=== PATIENT | female | born 1975 | race Caucasian/White ===

== ENCOUNTER 2018-10-06 04:56 | Inpatient (IN) | payer OTHER ==
[~2018-10-06] VITALS: Ht 167.6 cm; Wt 77.5 kg
[2018-10-06 05:22] VITALS: BP 124/72
[2018-10-06 05:58] LABS: HEMATOCRIT 33.3 % (36.0-47.0); HEMOGLOBIN 11.1 g/dl (12.0-15.5); MEAN CORPUSCULAR HEMOGLOBIN 28.1 pg (27.0-33.0); MEAN CORPUSCULAR HGB CONC 33.3 g/dl (32.0-36.5); MEAN CORPUSCULAR VOLUME 84.3 fl (80.0-96.0); PLATELET COUNT, AUTOMATED 271 10^3/uL (150-450); RED BLOOD COUNT 3.95 10^6/uL (4.00-5.40)
[2018-10-06] MEDS ORDERED: LR 1,000 ML IV SCH (06:12)
[2018-10-06] MEDS ORDERED: PRENTAB9 PO (06:17)
[2018-10-06] MEDS ORDERED: FERR325T3 PO (06:17)
[2018-10-06] MEDS ORDERED: HYDR-3363 PO (06:17)
[2018-10-06] MEDS ORDERED: VALT1TAB PO (06:17)
--- NOTE | 2018-10-06 06:28 | HPEPDOC ---
Obstetrical History & Physical General Date of Admission Oct 06, 2018 at 05:35 History of Present Illness 43 y/o at 39+4 with painful reg ctx's the last 2-3 hours. H/O rapid delivery last baby. No LOF/VB. Pos FM. 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 (h/o X2 in 2009 and 2012, both 7 lbs 6 oz) [employer] History: No pertinent history Past Medical History Medical History see problem list Surgical History: [place] teeth, Other (right parotid gland removal, right wrist ganglion X2, right breast lumpectomy) Family History Significant Family History: No pertinent family hx Social History Marital Status: Family situation: Spouse/partner home Psychosocial History: No pertinent psych hx * Smoker: non-smoker Alcohol: Denies Drugs: denies Abuse Violence Screening Have you been hit/kicked/slapp: No Have you been sexually assault: No Imunizations Tdap status: current Influenza Status: current Allergies Coded Allergies: Latex (Verified Allergy, Mild, mild skin reaction, 10/06/18) Physical Examination Physical Examination GENERAL: Alert and oriented times three. ABDOMEN: Gravid and non-tender to touch. FETUS: Is vertex (VTX) by sterile vaginal examination (SVE), RN check at 0530 was 5/90/-1, vtx EXTREMITIES: No edema. NEFG with no evid of any HSV outbreak Laboratory Data 24H LABS Laboratory Tests 2 10/06/18 05:39: Serology Scanned Report Hepatitis B Testing 10/06/18 05:40: Nucleated Red Blood Cells % (auto) 0.0 CBC/BMP Laboratory Tests 10/06/18 05:40 Red Blood Count 3.95 L, Mean Corpuscular Volume 84.3, Mean Corpuscular Hemoglobin 28.1, Mean Corpuscular Hemoglobin Concent 33.3, Red Cell Distribution Width 14.5 Urine Culture: No Growth Pertinent Laboratoy Data Blood Type: A- RBC Antibody Screen: Negative HIV: Negative Hepatitis B: Negative Hepatitis C: Unknown Rapid Plasma Reagin: Nonreactive Rubella: Immune Varicella: Immune Chlamydia/Gonorrhea: Negative Group B Streptococcus: Negative Quad Screen Test: Declined Cystic Fibrosis: Declined Glucose Tolerance Test: 140 (nl 3 hr gtt) Anatomy Ultrasound Placenta Location: Posterior Normal Anatomy: Yes Placenta Previa: No Assessment Variability: Moderate Accelerations: Positive Decelerations: None Tocometer Contractions: Yes Frequency: every 1-5 min. Duration: greater than 60 seconds Strength: palpated as strong Assessment/Plan Assessment active labor, h/o rapid labors Plan Admit and orient. Silk Presser and consent. Diet: clears Group B Streptococcus (GBS) neg Labs and intravenous (IV) per unit protocol. Counseled on Pitocin and induction of labor (IOL). Lactated Ringers (LR): 125 mL/hr. Anticipate normal spontaneous delivery () C-S as appropriate. Desires minimal intervention and delayed cord clamping, as long as baby condition is OK, this is fine SBAR to Dr Negro in 1 hour Sessions SESSIONS,FLORESITA Presley MD Oct 06, 2018 06:28
[2018-10-06] MEDS ORDERED: OXYTOCIN 30 UNITS IN 0.9% NaCl 500ML IV BAG (J2590) As Ordered ONE (06:31)
[2018-10-06 07:19] VITALS: BP 129/75
[2018-10-06] MEDS ORDERED: OXYTOCIN DRIP 30 UNITS in APPROPRIATE DILUENT 1 EA IV SCH (07:21)
--- NOTE | 2018-10-06 07:28 | DNPDOC ---
[facility] Delivery Note Delivery Note DATE OF DELIVERY: [id number] PREDELIVERY DIAGNOSIS: 39 4/7 weeks' gestation and labor. POST DELIVERY DIAGNOSIS: Delivered. PROCEDURE: Spontaneous vaginal delivery CHEF'S ASSISTANT: Dr. Pastor ANESTHESIA: natural ESTIMATED BLOOD LOSS: 200 mL. FINDINGS: male , weight pending, Score 8/9, nuchal cord times 1, loose DELIVERY SUMMARY: Called to room, fully with , pushing with BOW intact en sheila, great effort. Nuchal cord noticed after vtx delivery, BOW ruptured with clear fluid and cord reduced. No delay of either shoulder. Vigorous to mother's abd. Cord C/C by FOB. Placenta intact. Fundus firm, pit going at 999. No lacs to per/cx. Small post vag well lac became hemostatic, not repaired. Uncomplicated delivery. Cord blood drawn off the cord/placenta by RN. Patrizia PASTOR,FLORESITA Presley MD Oct 06, 2018 07:27
[2018-10-06] MEDS ORDERED: DIBUCAINE 1% OINTMENT 30GM TOP PRN (07:30)
[2018-10-06] MEDS ORDERED: MEASLES,MUMPS,RUBELLA VACCINE INJ (MMR-II) (90707) SC SCH (07:30)
[2018-10-06] MEDS ORDERED: RHOGAM 300 MCG (1500 IU) INJ (J2790) IM SCH (07:30)
[2018-10-06] MEDS ORDERED: METOCLOPRAMIDE INJ 10MG/2ML VIAL (J2765) IV PRN (07:30)
[2018-10-06] MEDS ORDERED: ACETAMINOPHEN TAB 650MG DOSE (2X325MG) PO PRN (07:30)
[2018-10-06 07:50] VITALS: BP 120/59
[2018-10-06 08:04] VITALS: BP 109/62
[2018-10-06] MEDS: PRENATAL VITAMINS CHEWABLE TABLET PO SCH (09:23)
[2018-10-06] MEDS: IBUPROFEN 800 MG TAB PO PRN (09:24)
[2018-10-06] MEDS: DOCUSATE SODIUM 100 MG CAP PO SCH ×2 (09:28→21:49)
[2018-10-06 10:58] VITALS: BP 121/67
[2018-10-06 18:00] VITALS: BP 126/68
[2018-10-07] MEDS: IBUPROFEN 800 MG TAB PO PRN (02:19)
[2018-10-07 06:00] VITALS: BP 111/61
--- NOTE | 2018-10-07 07:40 | IPN ---
DATE: 10/06/2018 43 old, 3, now para 3, admitted with contractions at 39 and 4 weeks of gestation who had a spontaneous vaginal delivery of a male 8 pounds 8 ounces, Apgars of 8 and 9 at one and five minutes respectively. On her first day, we discussed phlebitis, cystitis, mastitis, endometritis, cellulitis; diet, exercise and pain management; perineal, breast and wound care. Blood pressure on discharge 111/61, respirations 18, pulse 67, temperature 98.4. Her admitting hemoglobin was 11.1, hematocrit 33.3 and platelets 271. The rest of the examination unremarkable. Normocephalic, atraumatic. Neck full range of motion. Pupils equal and reactive to light. Distal pulses symmetric. No evidence of deep vein thrombosis (DVT), pulmonary embolism (PE) or superficial phlebitis. Chest is clear bilaterally to bases. No wheezes or rhonchi. Abdomen soft. Uterus two below. Lochia is moderate. Four quadrant bowel sounds are noted. Perineum is intact. No rashes, lesions or pruritus. No arthralgia or myalgia. No complaint of cough, wheeze, shortness of breath or dyspnea on exertion. In summary, we have a term gestation who delivered a live male with breast feedings going well. Plan on discharge today and followup in the office 6 weeks .
[2018-10-07] MEDS: DOCUSATE SODIUM 100 MG CAP PO SCH (09:17)
[2018-10-07] MEDS: PRENATAL VITAMINS CHEWABLE TABLET PO SCH (09:17)
[2018-10-07] MEDS ORDERED: NUPE1OIN2 TOP (10:34)
[2018-10-07] MEDS ORDERED: COLA100C5 PO (10:34)
[2018-10-07] MEDS ORDERED: IBUP-1114 PO (10:34)
[2018-10-07] MEDS ORDERED: MAPA500T2 PO (10:34)
== END 2018-10-07 12:15 | disposition home or self-care (01) | DRG 807 ==
LOC: M LDO 04:56 → M LDI 05:35 → M OBS 10:24
PROVIDERS: ADMIT Obstetrics & Gynecology; ATTEND Obstetrics & Gynecology
PROC: 10E0XZZ Delivery of Products of Conception, External Approach (ICD-10-PCS; principal; 2018-10-06)
DX: O69.81X0 Labor and delivery complicated by cord around neck, without compression, not applicable or unspecified (principal); Z37.0 Single live birth; Z3A.39 39 weeks gestation of pregnancy

== ENCOUNTER → 2019-08-27 | Outpatient (CLI) | payer OTHER ==
[~2019-08-27] MED LIST: COLA100C5 PO; FERR325T3 PO; HYDR-3363 PO; IBUP-1114 PO; MAPA500T2 PO; NUPE1OIN2 TOP; PRENTAB9 PO; VALT1TAB PO
== END ==
LOC: M RAD 09:22
PROVIDERS: ATTEND Nurse Practitioner Primary Care
DX: Z12.31 Encounter for screening mammogram for malignant neoplasm of breast (principal)

== ENCOUNTER 2020-12-28 11:54 | Emergency (ER) | payer OTHER ==
[~2020-12-28] VITALS: Ht 167.6 cm; Wt 66.4 kg
[2020-12-28] MEDS ORDERED: CETI-24 (12:01)
[2020-12-28] MEDS ORDERED: SERT50TA29 (12:01)
[2020-12-28 13:33] LABS: BASO % 0.4 % (0.0-1.0); EOS # 0.1 10^3/uL (0.0-0.5); EOS % 0.9 % (0.0-3.0); HEMATOCRIT 35.5 % (36.0-47.0); HEMOGLOBIN 11.8 g/dl (12.0-15.5); LYMPH # 1.6 10^3/uL (1.5-5.0); LYMPH % 17.9 % (24.0-44.0); MEAN CORPUSCULAR HEMOGLOBIN 28.7 pg (27.0-33.0); MEAN CORPUSCULAR HGB CONC 33.2 g/dl (32.0-36.5); MEAN CORPUSCULAR VOLUME 86.4 fl (80.0-96.0); MONO # 0.7 10^3/uL (0.0-0.8); MONO % 7.6 % (2.0-8.0); NEUTROPHILS # 6.5 10^3/uL (1.5-8.5); NEUTROPHILS % 72.9 % (36.0-66.0); PLATELET COUNT, AUTOMATED 318 10^3/uL (150-450); RED BLOOD COUNT 4.11 10^6/uL (4.00-5.40); WHITE BLOOD COUNT 8.9 10^3/uL (4.0-10.0)
[2020-12-28 14:20] LABS: BLOOD UREA NITROGEN 10 MG/DL (7-18); CALCIUM LEVEL 8.9 MG/DL (8.5-10.1); CARBON DIOXIDE LEVEL 28 MEQ/L (21-32); CHLORIDE LEVEL 106 MEQ/L (98-107); CREATININE FOR GFR 0.53 MG/DL (0.55-1.30); GLOMERULAR FILTRATION RATE > 60.0 (>58); GLUCOSE, FASTING 75 MG/DL (70-100); HCG, SERUM QUANTITATIVE 11917 MIU/ML; POTASSIUM SERUM 3.8 MEQ/L (3.5-5.1); SODIUM LEVEL 139 MEQ/L (136-145)
--- NOTE | 2020-12-28 14:21 | REP ---
INDICATION: vaginal bleeding. COMPARISON: None. TECHNIQUE: Real-time sonographic evaluation of pelvis performed utilizing transabdominal and endovaginal technique. FINDINGS: Intrauterine twin gestation is present, diamniotic dichorionic. Gestational sac A has a mean sac diameter of 20 mm, corresponding to an estimated gestational age of 7 weeks 0 days. A yolk sac is seen internally with no pole. Gestational sac B contains a pole with a crown-rump length of 21 mm corresponding to an estimated gestational age of 8 weeks 5 days. No heart motion is detected. The ovaries are not visualized. IMPRESSION: Intrauterine diamniotic dichorionic twin gestation which appears to be nonviable. Gestational sac A contains a yolk sac. Mean sac diameter corresponds to estimated age of 7 weeks 0 days. This sac size is discrepant with the pole in gestational sac B which has an estimated age of 8 weeks 5 days. The fetus demonstrates no heart motion. These findings are consistent with a blighted ovum and a demise. <Electronically signed by Douglas Gary > 12/28/20 [id number]
[2020-12-28] MEDS ORDERED: RHOGAM 300 MCG (1500 IU) INJ (J2790) IM ONE ×2 (15:00→16:15)
[2020-12-28 18:22] VITALS: BP 122/59
== END 2020-12-28 18:23 | disposition home or self-care (01) ==
LOC: M ED 11:54
DX: O03.4 Incomplete spontaneous abortion without complication (principal); O02.0 Blighted ovum and nonhydatidiform mole; O99.341 Other mental disorders complicating pregnancy, first trimester; O99.511 Diseases of the respiratory system complicating pregnancy, first trimester; O30.041 Twin pregnancy, dichorionic/diamniotic, first trimester; O09.521 Supervision of elderly multigravida, first trimester; Z79.899 Other long term (current) drug therapy; Z91.040 Latex allergy status
CPT/HCPCS: 76801; 76802; 76817; 80048; 81001; 84702; 85025; 86850; 86900; 86901; 87086; 96372; 99283; J2790

== ENCOUNTER → 2021-01-02 | Outpatient (CLI) | payer OTHER ==
[~2021-01-02] MED LIST changes: +CETI-24; +SERT50TA29
== END ==
LOC: M LAB 11:59
PROVIDERS: ATTEND Physician Assistant Medical
DX: O02.1 Missed abortion (principal)

== ENCOUNTER 2021-01-15 11:37 | Day surgery (SDC) | payer OTHER ==
[~2021-01-15] VITALS: Ht 167.6 cm; Wt 65.7 kg
[~2021-01-15 11:37] MED LIST changes: +KETOROLAC 60MG 2ML VIAL As Ordered ONE; +LIDOCAINE 2% 100MG/5ML SDV (FOR ANES.) As Ordered ONE; +MIDAZOLAM INJ 2MG/2ML VIAL (J2250 PER 1MG) As Ordered ONE; +ONDANSETRON 4MG/2ML VIAL As Ordered ONE; +dexameTHASONE 4 MG/ML 1ML VIAL (J1100 PER 1MG) As Ordered ONE; +fentaNYL 100 MCG/2 ML INJECTION (J3010) As Ordered ONE; +propofoL 200 MG/20 ML VIAL As Ordered ONE
[2021-01-15] MEDS ORDERED: NS 1,000 ML IV ONE (12:00)
[2021-01-15] MEDS ORDERED: SCOPOLAMINE 1MG TRANSDERMAL PATCH TOP ONE (12:20)
[2021-01-15] MEDS ORDERED: LR 1,000 ML IV ONE (12:20)
[2021-01-15 12:24] LABS: HEMATOCRIT 36.6 % (36.0-47.0); HEMOGLOBIN 12.3 g/dl (12.0-15.5); MEAN CORPUSCULAR HEMOGLOBIN 29.1 pg (27.0-33.0); MEAN CORPUSCULAR HGB CONC 33.6 g/dl (32.0-36.5); MEAN CORPUSCULAR VOLUME 86.7 fl (80.0-96.0); PLATELET COUNT, AUTOMATED 292 10^3/uL (150-450); RED BLOOD COUNT 4.22 10^6/uL (4.00-5.40); WHITE BLOOD COUNT 5.8 10^3/uL (4.0-10.0)
[2021-01-15] MEDS ORDERED: ACETAMINOPHEN 650 MG SUPP As Ordered ONE (12:41)
[2021-01-15] MEDS ORDERED: ePHEDrine SULFATE 25 MG/5 ML(5MG/ML) SYRINGE As Ordered ONE (12:42)
[2021-01-15 12:46] LABS: BLOOD UREA NITROGEN 7 MG/DL (7-18); CALCIUM LEVEL 9.1 MG/DL (8.5-10.1); CARBON DIOXIDE LEVEL 28 MEQ/L (21-32); CHLORIDE LEVEL 105 MEQ/L (98-107); GLOMERULAR FILTRATION RATE > 60.0 (>58); GLUCOSE, FASTING 96 MG/DL (70-100); HCG, SERUM QUANTITATIVE 28 MIU/ML; SODIUM LEVEL 140 MEQ/L (136-145)
[2021-01-15] MEDS ORDERED: OXYTOCIN INJ 10 UNITS/ML VIAL (J2590) As Ordered ONE (12:49)
[2021-01-15] MEDS ORDERED: NS 1,000 ML IV SCH (13:00)
[2021-01-15] MEDS ORDERED: oxyCODONE 5MG TAB PO PRN (13:10)
[2021-01-15] MEDS ORDERED: LR 1,000 ML IV SCH (13:10)
[2021-01-15] MEDS ORDERED: ONDANSETRON 4MG/2ML VIAL IV PRN (13:10)
[2021-01-15] MEDS ORDERED: fentaNYL 100 MCG/2 ML INJECTION (J3010) IV PRN (13:10)
[2021-01-15] MEDS ORDERED: HYDROMORPHONE HCL 0.5 MG/ 0.5 ML SYRINGE (J1170 PER 1) IV PRN (13:10)
[2021-01-15 14:20] VITALS: BP 115/70
[2021-01-15] MEDS ORDERED: KETOROLAC 30 MG/ML 1ML VIAL IV PRN (19:00)
--- NOTE | 2021-01-24 12:09 | RO ---
OPERATIVE NOTE DATE OF OPERATION: 01/15/2021 PREOPERATIVE DIAGNOSIS: Missed . POSTOPERATIVE DIAGNOSIS: Missed . OPERATION PROPOSED: Suction and curettage. PROCEDURE: Suction and curettage. SURGEON: Joseph Negro MD TERMITE TREATER HELPER: ANESTHESIA: General. ESTIMATED BLOOD LOSS: Less than 25 mL. DESCRIPTION OF PROCEDURE: After adequate time-out, prepped and draped in the lithotomy position. Bladder was drained for 200 mL of clear urine. Acetaminophen suppository 1300 mg per rectum. Sequentials in place. No antibiotics required. Weighted speculum in the vagina. Single tooth tenaculum on the anterior lip of the cervix. Uterus sound depth of 9 cm and dilated to a Hegar #9 to 10. Suction and curettage, curved #9 until curettage to the cavity was smooth. Uterus was placed in anatomical position, contracted under Pitocin. Patient is Rh positive but does not require RhoGAM. Patient was sent to recovery in good condition. Instrument and pad count correct.
== END 2021-01-15 14:29 | disposition home or self-care (01) ==
LOC: M SDC 11:37
PROVIDERS: ATTEND Obstetrics & Gynecology
DX: O02.1 Missed abortion (principal); Z79.899 Other long term (current) drug therapy; Z91.040 Latex allergy status
CPT/HCPCS: 36415; 59820; 80048; 84702; 85027; 86850; 86870; 86900; 86901; 88305; J1100; J1885; J2250; J2405; J2590; J3010; U0002

== ENCOUNTER → 2022-05-31 | Outpatient (CLI) | payer OTHER ==
[~2022-05-31] MED LIST changes: -KETOROLAC 60MG 2ML VIAL As Ordered ONE; -LIDOCAINE 2% 100MG/5ML SDV (FOR ANES.) As Ordered ONE; -MIDAZOLAM INJ 2MG/2ML VIAL (J2250 PER 1MG) As Ordered ONE; -ONDANSETRON 4MG/2ML VIAL As Ordered ONE; -dexameTHASONE 4 MG/ML 1ML VIAL (J1100 PER 1MG) As Ordered ONE; -fentaNYL 100 MCG/2 ML INJECTION (J3010) As Ordered ONE; -propofoL 200 MG/20 ML VIAL As Ordered ONE
== END ==
LOC: M WHC 14:50
PROVIDERS: ATTEND Nurse Practitioner Primary Care
DX: Z12.31 Encounter for screening mammogram for malignant neoplasm of breast (principal)